=== PATIENT | female | born 1960 | race Caucasian/White ===

== ENCOUNTER → 2022-09-10 | Outpatient (CLI) | payer BC ==
--- NOTE | 2022-09-10 10:04 | CT ---
EXAMINATION TYPE: High resolution CT chest DATE OF EXAM: 09/10/2022 COMPARISON: Radiograph 08/31/2022 HISTORY: 62-year-old female R05.3, chronic cough TECHNIQUE: High-resolution axial scanning of the chest without contrast per HR CT protocol. Both insp iratory and expiratory phase imaging as well as prone scanning was performed. CT DLP: 1348.9 mGycm Automated exposure control for dose reduction was used. FINDINGS: Heart mildly enlarged without pericardial effusion. Mildly aneurysmal ascending aorta 4.1 cm. There is bovine configuration to the aortic arch. No thoracic lymphadenopathy by CT size criteria. Some minimal strandy areas of atelectasis or scarring bilaterally. Mild bronchial wall thickening emmy ecially in the lower lungs. * 4 mm left basilar pulmonary nodule. * 7 mm right middle lobe pulmonary nodule, axial image 153 series 4. A 3-6 month follow-up CT recomm ended to reassess. * Tiny calcified granuloma right middle lobe. Tiny calcified granuloma posterior right base, axial image 135. Suggestion of an emphysematous cyst right base versus small pneumatocele. Scattered mild interstitial prominence but no dominant groundglass, honeycombing, perinephric lymphat ic nodules, thickening of the bronchovascular bundles, or centrilobular nodules. No bronchiectasis. Tiny hiatal hernia. Cholecystectomy clips. Bowel stool burden. Bones: Anterior endplate spondylosis midthoracic spine. IMPRESSION: 1. NO SPECIFIC HRCT FINDINGS OF INTERSTITIAL PNEUMONITIS. MINIMAL SCATTERED INTERSTITIAL SCARRING IS SUGGESTED. BRONCHIAL WALL THICKENING COULD REFLECT BRONCHITIS OR CHRONIC ASTHMA. MINIMAL EMPHYSEMATOU S CHANGE MAY ALSO BE PRESENT. 2. A 7 MM RIGHT MIDDLE LOBE PULMONARY NODULE. 3-6 MONTH FOLLOW-UP CT TO EXCLUDE EARLY LUNG CANCER. 3. MILD ANEURYSM ASCENDING AORTA 4.1 CM.
== END | disposition home or self-care (01) ==
LOC: RADCTMAIN 09-07 06:50
PROVIDERS: ATTEND Internal Medicine Critical Care Medicine
DX: R05.3 Chronic cough (principal)
CPT/HCPCS: 71250

== ENCOUNTER → 2023-02-04 | Outpatient (CLI) | payer BC ==
--- NOTE | 2023-02-04 10:27 | CT ---
EXAMINATION TYPE: CT chest w con DATE OF EXAM: 02/04/2023 COMPARISON: 09/10/2022. HISTORY: abn CXR, cough CT DLP: 451.6 mGycm Automated exposure control for dose reduction was used. TECHNIQUE: CT scan of the chest is performed with IV Contrast, patient injected with 100 mL of Isovue 300. MIP Images are created on CT scanner and reviewed. 3D reconstructed images are created on an independent workstation and reviewed. FINDINGS: Mediastinum and Jessica: There is no axillary, mediastinal or hilar lymphadenopathy. Pleural and Pericardial spaces: There are no pleural or pericardial effusions. Upper Abdomen: There is a 1.9 cm simple cyst within the left lobe of the liver. The visualized upper abdomen otherwise appears unremarkable. Cardiovascular: The thoracic aorta is normal in size. Pulmonary arteries are normal in size. Lung Parenchyma and Airways: There is a 6.9 mm right middle lobe nodule on series 4 image 20 which is unchanged. Lungs otherwise appear clear. Bones: No fracture or aggressive osseous lesion. IMPRESSION: 1. No acute abnormality in the chest. 2. Unchanged right middle lobe pulmonary nodule. Follow-up in one year is recommended.
== END | disposition home or self-care (01) ==
LOC: RADCTMAIN 08:16
PROVIDERS: ATTEND Student in an Organized Health Care Education/Training Program
DX: R91.1 Solitary pulmonary nodule (principal)
CPT/HCPCS: 71260; Q9967

== ENCOUNTER → 2023-04-22 | Outpatient (CLI) | payer BC | END | disposition home or self-care (01) | LOC: LABWHC1 08:48 | PROVIDERS: ATTEND Otolaryngology | DX: Z00.00 Encounter for general adult medical examination without abnormal findings (principal) ==